=== PATIENT | female | born 1990 | race Caucasian/White ===

== ENCOUNTER → 2016-10-07 | Outpatient (CLI) | payer OTHER ==
[~2016-10-07] MED LIST: PANT40TA PO; PRENTAB26 PO; [UNRECOGNIZED DRUG - CODE] PO
[2016-10-07 18:05] LABS: URINE APPEARANCE CLEAR (CLEAR); URINE BILIRUBIN NEG (NEG); URINE COLOR YELLOW; URINE EPITHELIAL CELL AUTO >30 /lpf (0-5); URINE NITRITE NEG (NEG); URINE PH 6.5 (4.5-7.5); UROBILINOGEN NEG (NEG)
[2016-10-07 18:10] LABS: MANUAL MICROSCOPIC REQUIRED? NO; REVIEW REQ? YES
== END ==
LOC: C.LABSPEC 17:44
PROVIDERS: ATTEND Obstetrics & Gynecology
DX: O09.03 Supervision of pregnancy with history of infertility, third trimester (principal); Z3A.00 Weeks of gestation of pregnancy not specified

== ENCOUNTER → 2016-10-07 | Outpatient (CLI) | payer OTHER ==
[2016-10-07 16:44] LABS: HEMATOCRIT 32.5 % (37-47)
[2016-10-07 16:52] LABS: GTGD 50 Grams
== END | disposition home or self-care (01) ==
LOC: C.LAB1850 15:37
PROVIDERS: ATTEND Obstetrics & Gynecology
DX: O09.03 Supervision of pregnancy with history of infertility, third trimester (principal); Z3A.00 Weeks of gestation of pregnancy not specified

== ENCOUNTER → 2016-12-02 | Outpatient (CLI) | payer OTHER | END | disposition home or self-care (01) | LOC: C.LABSPEC 17:31 | PROVIDERS: ATTEND Obstetrics & Gynecology | DX: O09.03 Supervision of pregnancy with history of infertility, third trimester (principal) ==

== ENCOUNTER 2016-12-22 09:48 | Inpatient (IN) | payer OTHER ==
[~2016-12-22] VITALS: Ht 162.6 cm; Wt 73.2 kg
[~2016-12-22 09:48] MED LIST changes: -PRENTAB26 PO
[2016-12-22 11:02] VITALS: Ht 162.6 cm; Wt 73.2 kg
[2016-12-22] MEDS ORDERED: PRENTAB26 PO (11:08)
[2016-12-22 15:26] LABS: HEMATOCRIT 34.8 % (37-47); MEAN CELL VOLUME 90.9 fL (80-100); MEAN CORPUSCULAR HEMOGLOBIN 31.6 pg (25-34); MEAN CORPUSCULAR HGB CONC 34.8 g/dl (32-36); MEAN PLATELET VOLUME 11.5 fL (7.4-10.4); PLATELET COUNT 160 K/uL (130-400); RED BLOOD COUNT 3.83 M/uL (4.2-5.4); WHITE BLOOD COUNT 12.45 K/uL (4.8-10.8)
[2016-12-22] MEDS ORDERED: LACTATED RINGER'S 1000ML 1,000 ML IV PRN (15:26)
[2016-12-22] MEDS: LACTATED RINGER'S 1000ML 1,000 ML IV SCH ×2 (18:27→19:53)
[2016-12-22] MEDS ORDERED: BUTORPHANOL TARTRATE 1 MG/ML VIAL IV ONE (18:30)
[2016-12-22] MEDS ORDERED: BUTORPHANOL TARTRATE 1 MG/ML VIAL ONE (18:38)
[2016-12-22] MEDS ORDERED: BUPIVACAINE 0.25% 30 ML VIAL ONE (19:13)
[2016-12-22] MEDS ORDERED: EpHEDrine SULFATE INJ 50 MG/ML AMP ONE (19:14)
[2016-12-22] MEDS ORDERED: FENTANYL CITRATE INJ 50 MCG/1 ML 2 ML VIAL ONE (19:15)
[2016-12-22] MEDS ORDERED: FENTANYL 2MCG/ML ROPIV 1.25MG/ML 100ML BAG EPI ONE (19:16)
[2016-12-22] MEDS ORDERED: LACTATED RINGER'S 1000ML 500 ML IV PRN ×2 (21:01→23:02)
[2016-12-22] MEDS ORDERED: OXYTOCIN 30 UNITS/500ML NSS IV PRN (21:15)
[2016-12-22] MEDS ORDERED: FENTANYL 2MCG/ML ROPIV 1.25MG/ML 100ML BAG EPI PRN (23:15)
[2016-12-22] MEDS ORDERED: DiphenhydrAMINE HCL 50 MG/ML VIAL IV PRN (23:15)
[2016-12-22] MEDS ORDERED: NALOXONE HCL INJ 0.4 MG/1 ML VIAL/CARP IV PRN (23:15)
[2016-12-22] MEDS ORDERED: EpHEDrine SULFATE INJ 50 MG/ML AMP IV PRN (23:15)
[2016-12-23] VITALS (8 sets, daily range): BP systolic 111–129; BP diastolic 70–75; PULSE 69–86; TEMP 36.7–37.1; O2SAT 96–98
[2016-12-23] MEDS ORDERED: DIPHTHERIA/TETANUS/PERTUSSIS 0.5 ML SYR/VIAL IM. ONE
[2016-12-23] MEDS ORDERED: OXYCODONE/ACETAMINOPHEN 5-325 TAB PO PRN
[2016-12-23] MEDS ORDERED: OXYTOCIN 30 UNITS/500ML NSS IV PRN
[2016-12-23] MEDS ORDERED: ACETAMINOPHEN/CODEINE 300/30MG TAB PO PRN ×2
[2016-12-23] MEDS ORDERED: ACETAMINOPHEN 325 MG TAB PO PRN
[2016-12-23] MEDS ORDERED: SUPERCREAM 0.870 % 15GM JAR EXT PRN
[2016-12-23] MEDS ORDERED: LANOLIN OINT EXT PRN ×2
[2016-12-23] MEDS ORDERED: HYDROCORTISONE ACETATE 25 MG SUPP PR PRN
[2016-12-23] MEDS ORDERED: BENZOCAINE 20% AER SPR 82.5 GM CAN EXT PRN
--- NOTE | 2016-12-23 00:57 | DELIVERY SUMMARY ---
DATE OF OPERATION: 12/22/2016 PREOPERATIVE DIAGNOSES: 1. Intrauterine at 39 and 2/7th weeks. 2. Labor. POSTOPERATIVE DIAGNOSES: Same. PROCEDURES: 1. Amniotomy. 2. Epidural anesthesia. 3. Normal spontaneous vaginal delivery. 4. Second degree perineal laceration with repair. SURGEON: Dr. Juarez. ANESTHESIA: Epidural. ESTIMATED BLOOD LOSS: 350 mL. PROCEDURE IN DETAIL: The patient presented to labor and delivery in early active labor. She progressed and changed her cervix and was admitted. A 5 cm dilated, she underwent an amniotomy. She got one dose of Stadol and then an epidural anesthetic. She then progressed to complete, complete and +2 station with just a little bit of Pitocin augmentation and she pushed to deliver a viable female infant in [place] presentation. There was no nuchal cord. The nose and mouth were bulb suctioned. The rest of the was then delivered without difficulty. The was placed on the maternal abdomen where the nose and mouth were again bulb suctioned. The cord was clamped and cut. Cord blood and segment were obtained. The placenta was delivered spontaneously intact through a 3-vessel cord. The cervix, sulci and rectum were examined and found to be intact. The second degree peroneal laceration was repaired with 3-0 Vicryl in the normal standard fashion. Apgars were 8 and 9, weight pending. Mother and baby doing well at the end of the delivery. I attest to the content of the Intraoperative Record and any orders documented therein. Any exceptio ns are noted below.
[2016-12-23] MEDS: IBUPROFEN 600 MG TAB PO PRN ×5 (01:36→23:54)
[2016-12-23 07:01] LABS: HEMATOCRIT 32.7 % (37-47)
--- NOTE | 2016-12-23 08:11 | Progress Note ---
Subjective Dec 23, 2016. Subjective conversation w/ patient, conversation w/ family, physical exam, lab review Ambulation: ambulating normally Voiding: no voiding problems Passing Gas: Yes Diet Tolerance: Regular Diet Lochia: Moderate Feeding Type: Breast Feeding Pain: Complains of pain 2/10 controlled well with pain medication Review of Systems Constitutional: No chills, No fever Respiratory: No cough, No shortness of breath Cardiac: No chest pain, No palpitations Breast: No breast lump Abdomen: No diarrhea, No nausea, No pain, No vomiting Female : No dysuria Patient was seen at the bedside. No acute event overnight. Denies headache. Objective Vital Signs Date Time Temp Pulse Resp B/P Pulse Ox O2 Delivery O2 Flow Rate FiO2 12/23/16 07:57 37.0 69 16 120/74 12/23/16 03:35 Room Air 12/23/16 03:35 36.8 75 18 123/70 Room Air 12/23/16 02:10 36.8 82 16 129/70 Room Air Physical Exam General Appearance: WELL-APPEARING, WD/WN Respiratory/Chest: lungs clear, normal breath sounds Cardiovascular: regular rate, rhythm Abdomen: normal bowel sounds, non tender, soft Fundus: Firm, Tender (appropriate for ), Relation to Umbilicus (1cm below) Extremities: non-tender, no pedal edema, no calf tenderness Laboratory Results Last 24 Hours Test 12/22/16 15:19 12/23/16 06:19 White Blood Count 12.45 K/uL Red Blood Count 3.83 M/uL Hemoglobin 12.1 g/dL 11.2 g/dL Hematocrit 34.8 % 32.7 % Mean Corpuscular Volume 90.9 fL Mean Corpuscular Hemoglobin 31.6 pg Mean Corpuscular Hemoglobin Concent 34.8 g/dl RDW Standard Deviation 43.6 fL RDW Coefficient of Variation 13.1 % Platelet Count 160 K/uL Mean Platelet Volume 11.5 fL Assessment and Plan Post- Day#: 0 Continue Routine Care: A/P This is a 26 y/o female, , had normal vaginal delivery. She is ambulating and clinically stable. Plan: - Vitals sings are reviewed and WNL (Tmax 36.8) - Hgb is 12.1 --> 11.2 (today) - Blood type A+, GBS -, Rubella Immune - Routine care - Encourage ambulation, monitor and control pain with ibuprofen prn, continue with regular diet and monitor lochia - Encourage breast feeding and educate about breast feeding Resident Physician Supervision Note: I interviewed and examined the patient. Discussed with Dr. Barboza and agree with findings and plan as documented in the note. Any exceptions or clarifications are listed here: Doing well. Routine pp care. Documented By: Janneth Juarez
[2016-12-23] MEDS: DOCUSATE SODIUM 100 MG CAP PO SCH ×2 (08:16→20:44)
[2016-12-23] MEDS: PRENATAL VITAMIN TAB PO SCH (08:17)
--- NOTE | 2016-12-23 10:21 | Anesthesia Procedure Note ---
Anesthesia Epidural Removal Nt Date & Time Dec 23, 2016 at 10:20 Vital Signs Pain Intensity: 3.0 Vital Signs Past 12 Hours Date Time Temp Pulse Resp B/P Pulse Ox O2 Delivery O2 Flow Rate FiO2 12/23/16 07:57 37.0 69 16 120/74 12/23/16 07:50 Room Air 12/23/16 07:50 37.0 69 16 120/74 Room Air 12/23/16 03:35 Room Air 12/23/16 03:35 36.8 75 18 123/70 Room Air 12/23/16 02:10 36.8 82 16 129/70 Room Air Notes Mental Status: alert / awake / arousable, participated in evaluation Nausea / Vomiting: adequately controlled Pain: adequately controlled Airway Patency, RR, SpO2: stable & adequate BP & HR: stable & adequate Hydration State: stable & adequate Neuraxial Anesthesia: was administered Anesthetic Complications: no major complications apparent, pt satisfied with anesthetic care Epidural: removed without complications, with tip intact
--- NOTE | 2016-12-24 07:04 | Discharge Instructions ---
Discharge Instructions Date of Service Dec 23, 2016. Admission Reason for Admission: R/O Labor Discharge Discharge Diagnosis / Problem: s/p normal vaginal delivery Discharge Goals Goal(s): Routine recovery after delivery Medications Continue Dispensed Medications: supercream, dermaplast, tucks, lansinoh Activity Recommendations Activity Limitations: as noted below . Instructions / Follow-Up Instructions / Follow-Up ACTIVITY RECOMMENDATIONS: * Gradual return to full activity over the next 2-3 weeks. * No lifting - nothing heavier than baby over the next 2-3 weeks. * Do not engage in vigorous exercise, sexual activity or sports until cleared by your physician. * Do not drive or operate any motorized equipment until cleared by your physician. * You may shower/bathe daily. MEDICATIONS: For discomfort or pain, you may use Acetaminophen (Tylenol), Ibuprofen (Advil), or Naproxen (Aleve) following the package directions. For constipation you may use Colace following the package directions. BREAST CARE: If you are not breast feeding: * Wear a supportive bra 24 hours a day for one to two weeks. * Avoid stimulating your breasts and nipples as much as possible during the first few weeks after delivery. * When taking a shower, have the warm water hit your back, not breasts. * When your breasts feel full, apply ice packs. Usually three to four times a day helps ease the discomfort. * Take a mild pain medication (Tylenol / Motrin) when you are uncomfortable. If breast feeding: * Use breast milk to lubricate nipples. Lansinoh cream may be used for sore nipples. You do not need to remove cream prior to breast feeding. If using a different brand of cream, check the label for directions regarding removal of cream prior to nursing. * Wear a supportive bra. * If having problems with breasts or breast feeding, call a men's custom hair piece consultant or your health care provider. EPISIOTOMY CARE: After delivery, if you have an episiotomy (stitches), the following steps will ease discomfort and aid healing. * For the first 24 hours after delivery, place ice packs next to your episiotomy to help reduce swelling. * After the first 24 hour-period, sitz baths, either portable or in the tub, are suggested. A shower with a shower arm sprayed over the episiotomy may be comforting. * Sherri care should be done after each voiding and bowel movement. Squirt warm water from a plastic bottle over the perineum (region of the body between the anus and urinary opening) and pat dry. * Use Dermoplast to ease discomfort. Shake container. [place] directly over the episiotomy. Place a Tucks on a clean sanitary pad next to your episiotomy. SPECIAL CARE INSTRUCTIONS: When you are discharged from the hospital, it is important for you to follow the instructions listed below: * During the first week at home, you should be able to care for yourself and your baby. In addition, the usual light household activities are encouraged. * Limit your activities to the way you feel. Do not try to clean the house or move furniture. Be sensible. * If you actively engage in sports and have done so up until the time of your delivery, you may resume these activities as soon as you feel able. This may take up to one month or even longer. Use good judgment. * Continue to take your vitamins for at least six weeks after the of your baby. * Your diet need not be limited unless you were on a special diet before your delivery. Breast-feeding mothers need around 2500 calories per day and at least 64-80 ounces of fluid per day (8 to 10 glasses). * You should eat foods from the four major food groups. Crash diets or fad diets are to be avoided. Eating lean meats, fresh fruits and vegetables, low-fat dairy products, high fiber foods and a regular exercise program, will help you get back to your pre- weight without putting your health at risk. * Constipation is sometimes a problem after delivery. Take a mild laxative as needed. If breast feeding, Milk of Magnesia is acceptable to use. You may use a suppository or Fleets enema if no episiotomy. * A daily shower or tub bath is suggested. Be sure to thoroughly and gently dry the perineum. * A bloody vaginal discharge will usually continue until around four weeks post . A small amount of bleeding may continue for as long as six weeks. Vaginal discharge changes from the bright red bleeding after delivery to pink then brownish and finally yellowish-pink before becoming white and disappearing. * Bleeding may increase with activity. Your first period may come in 4-8 weeks. If you are breast feeding, your period may be delayed even longer. * [place] (sex) can begin whenever both you and your partner feel comfortable and do not have any form of genital infection. It is recommended that you wait at least six weeks for internal and external healing to occur. If you have questions, please talk to your health care practitioner. A condom should be used to prevent infection and . * Foreplay, gentle intercourse and lubrication is very important the first several times to prevent pain. A water-based lubricant such as K-Y jelly or Astroglide may be used. * If you have RH negative blood and your baby is RH positive, you will receive RHOGAM by injection prior to discharge. The nurse will give you a card to keep with you that has the date and place that you received RHOGAM after delivery. * During your care, you had a Rubella screen done to check for the presence of rubella antibodies in your blood. If your test was negative, you will receive a Rubella vaccine prior to discharge. This vaccine may cause a fever, soreness at the injection site and flu-like symptoms. If these symptoms persist, notify your health care practitioner. is not advised for one month after a Rubella vaccine. * Verbalizes understanding of car seat law as reviewed with patient nursing. * Car Seat hand-out given and reviewed with patient by nursing. * Shaken baby information reviewed with patient by nursing. Call you doctor if: * Heavy bleeding (saturating several pads an hour) or passing clots the size of your fist. * A fever >101 degrees F (38.3 degrees C) on two occasions four hours apart and /or chills. * Unusual pain in the pelvic or vaginal areas. * "Baby Blues" lasting longer than two weeks. If you have any questions or concerns, call your health care practitioner at . FOLLOW UP VISIT: * Please call the office at to schedule a 6 week examination. It is important you keep this appointment. It is important for you to make arrangements for either yearly or twice yearly check-ups thereafter. Current Hospital Diet Patient's current hospital diet: Regular OB Diet Discharge Diet Recommended Diet: Regular Diet Pending Studies Studies pending at discharge: no Medical Emergencies . Who to Call and When: Medical Emergencies: If at any time you feel your situation is an emergency, please call 911 immediately. . Non-Emergent Contact Non-Emergency issues call your: Form Block Maker Call Non-Emergent contact if: you have a fever, temperature is above 101 . . "Provider Documentation" section prepared by Deysi Barboza. VTE Core Measure Inpt VTE Proph given/why not?: Treatment not indicated
--- NOTE | 2016-12-24 07:16 | Progress Note ---
Subjective Dec 24, 2016. Subjective conversation w/ patient, physical exam, lab review, review of studies Ambulation: ambulating normally Voiding: no voiding problems Passing Gas: Yes Diet Tolerance: Regular Diet Lochia: Moderate Feeding Type: Breast Feeding Pain: Complains of pain, / Comment: Patient was seen at the bedside. No acute events overnight. Review of Systems Constitutional: No chills, No fever Respiratory: No cough, No shortness of breath Cardiac: No chest pain Breast: No breast lump Abdomen: No constipation, No diarrhea, No nausea, No pain, No vomiting Female : No dysuria Denies headache. Objective Vital Signs Date Time Temp Pulse Resp B/P Pulse Ox O2 Delivery O2 Flow Rate FiO2 12/23/16 23:30 36.7 86 18 111/70 98 Room Air 12/23/16 23:30 98 Room Air 12/23/16 21:00 36.7 79 16 120/73 Room Air 12/23/16 15:55 96 Room Air 12/23/16 15:55 36.9 85 18 114/75 97 Room Air 12/23/16 11:56 37.1 80 18 113/73 96 Room Air 12/23/16 07:57 37.0 69 16 120/74 12/23/16 07:50 Room Air 12/23/16 07:50 37.0 69 16 120/74 Room Air Physical Exam General Appearance: WELL-APPEARING, WD/WN Respiratory/Chest: chest non-tender, lungs clear, normal breath sounds Cardiovascular: regular rate, rhythm Abdomen: normal bowel sounds, non tender, soft Fundus: Firm, Relation to Umbilicus (1cm below) Extremities: non-tender, no pedal edema, no calf tenderness Medications Current Inpatient Medications Medications (Trade) Dose Ordered Sig/[place] Route Start Time Stop Time Status Last Admin Dose Admin Oxytocin (Pitocin IV) 30 units UD PRN IV 12/23/16 00:00 01/22/17 00:00 Benzocaine (Dermoplast Aero Spr) 1 appln PRN PRN EXT 12/23/16 00:00 01/22/17 00:00 Cocaine HCl (Supercream 0.870% Cr) BID PRN EXT 12/23/16 00:00 01/06/17 00:00 Hydrocortisone Acetate (Anusol Hc Supp) 25 mg BID PRN MA 12/23/16 00:00 01/22/17 00:00 Lanolin (Lanolin Oint) PRN PRN EXT 12/23/16 00:00 01/22/17 00:00 Prenat Multivit/ Sharp/Iron/Folic Ac ( Vitamin Tab) 1 tab DAILY PO 12/23/16 08:00 01/22/17 07:59 12/23/16 08:17 1 TAB Ibuprofen (Motrin Tab) 600 mg Q4H PRN PO 12/23/16 00:00 01/22/17 00:00 12/23/16 23:54 600 MG Acetaminophen (Tylenol Tab) 650 mg Q6H PRN PO 12/23/16 00:00 01/22/17 00:00 Acetaminophen/ Codeine Phosphate (Tylenol w/ Codeine #3 Tab) 1 tab Q4H PRN PO 12/23/16 00:00 01/22/17 00:00 Acetaminophen/ Codeine Phosphate (Tylenol w/ Codeine #3 Tab) 2 tab Q4H PRN PO 12/23/16 00:00 01/22/17 00:00 Docusate Sodium (coLACE CAP) 100 mg BID PO 12/23/16 08:00 01/22/17 07:59 12/23/16 20:44 100 MG Assessment and Plan Post- Day#: 2 Continue Routine Care: A/P This is a 26 y/o female, , s/p normal vaginal delivery. -Vitals signs are reviewed and WNL (Tmax 37.1) - Hgb was 11.2 (yesterday) - Blood type A+, antibody neg, Rubella immune, GBS neg - No signs of depression - Discussed resting, feeding, pain control, mastitis, control,, follow up in 6 weeks and reasons to call sooner if necessary. - Continue with pain mediation as needed and continue vitamins. - Encourage breast feeding and educate breast feeding - Patient understands and keen for home - Plan to discharge home Resident Physician Supervision Note: I was present with Dr. Barboza during the history and exam. I discussed the case with the resident and agree with the findings and plan as documented in the note. Any exceptions or clarifications are listed here: doing well. no complaints. ready for discharge home. instructions reviewed. f/u 6wks pp. Documented By: Tamiko De Jesus
[2016-12-24 07:30] VITALS: BP 117/75; PULSE 78; TEMP 36.6; O2SAT 97; O2SAT 98
[2016-12-24] MEDS: IBUPROFEN 600 MG TAB PO PRN ×2 (07:47→12:31)
[2016-12-24] MEDS: PRENATAL VITAMIN TAB PO SCH (07:47)
[2016-12-24] MEDS: DOCUSATE SODIUM 100 MG CAP PO SCH (07:47)
[2016-12-24 15:11] VITALS: BP_DIAS 75; PULSE 78; TEMP 36.6
== END 2016-12-24 15:20 | disposition home or self-care (01) | DRG 775 ==
LOC: C.LD 09:48 → C.OPB 09:48 → C.LD 15:30 → C.OPB 15:30 → C.OBG 12-23 02:15 → EDSTATUS 12-27 09:49
PROVIDERS: ADMIT Obstetrics & Gynecology; ATTEND Obstetrics & Gynecology
PROC: 10E0XZZ Delivery of Products of Conception, External Approach (ICD-10-PCS; principal; 2016-12-22)
PROC: 0KQM0ZZ Repair Perineum Muscle, Open Approach (ICD-10-PCS; principal; 2016-12-22)
DX: O99.62 Diseases of the digestive system complicating childbirth (principal); Z37.0 Single live birth; O70.1 Second degree perineal laceration during delivery; K21.9 Gastro-esophageal reflux disease without esophagitis; O26.893 Other specified pregnancy related conditions, third trimester; Z79.899 Other long term (current) drug therapy; Z3A.39 39 weeks gestation of pregnancy

== ENCOUNTER → 2017-02-05 | Outpatient (CLI) | payer OTHER ==
[~2017-02-05] MED LIST changes: +PRENTAB26 PO; -[UNRECOGNIZED DRUG - CODE] PO
== END | disposition home or self-care (01) ==
LOC: C.PAPS 13:44
PROVIDERS: ATTEND Obstetrics & Gynecology
DX: Z12.4 Encounter for screening for malignant neoplasm of cervix (principal)

== ENCOUNTER → 2018-05-06 | Outpatient (CLI) | payer OTHER | END | disposition home or self-care (01) | LOC: C.PAPS 18:21 | PROVIDERS: ATTEND Obstetrics & Gynecology | DX: Z12.4 Encounter for screening for malignant neoplasm of cervix (principal) ==

== ENCOUNTER 2019-12-19 14:01 | Inpatient (IN) ==
[2019-12-19] MEDS ORDERED: OXYTOCIN 30 UNITS/500 ML BAG IV PRN (14:47)
--- NOTE | 2019-12-19 14:50 | Labor Progress Brief Note ---
Date of Service December 19, 2019 Subjective Patient arrives from home with c/o contractions Q3min, no LOF or VB, good FM. Assessment & Plan (1) Normal labor and delivery: Admit, epidural on request, exp mgmt for now, AROM/Pit if needed at future assessments. Group B Strep neg. Physical Exam Physical Exam: /- FHT Cat 1 [place] Q3min No ROM evident Results & Data Vital Signs (Past 12 Hours) Vital Signs Pulse BP 12/19/19 14:12 99 H 127/80 Coding Level of Care Code None Diagnoses Normal labor and delivery O80
[2019-12-19 15:04] LABS: Hematocrit (blood only) 34.9 % (37-47); Hemoglobin 11.8 g/dL (12.0-16.0); Mean Corpuscular Hemoglobin 31.5 pg (25-34); Mean Corpuscular Volume 93.1 fL (80-100); Mean Platelet Volume 11.8 fL (7.4-10.4); Platelet Count 157 K/uL (130-400); RDW Coefficient of Variation 13.9 % (11.5-14.5); RDW Standard Deviation 47.5 fL (36.4-46.3); Red Blood Count 3.75 M/uL (4.2-5.4); White Blood Count 10.77 K/uL (4.8-10.8)
[2019-12-19 15:09] LABS: Mean Corpuscular Hgb Conc 33.8 g/dL (32-36)
--- NOTE | 2019-12-19 17:37 | Labor Progress Brief Note ---
Date of Service December 19, 2019 Subjective contractions more intense. Assessment & Plan (1) Normal labor and delivery: Continue current mgmt. Physical Exam Physical Exam: /0 AROM clear fluid FHT Cat 1 [place] Q2-3 Results & Data Vital Signs (Past 12 Hours) Vital Signs Temp Pulse Resp BP 12/19/19 14:27 98.6 F 20 12/19/19 14:12 99 H 127/80 Coding Level of Care Code None Diagnoses Normal labor and delivery O80
[2019-12-19] MEDS: LACTATED RINGER'S 1,000 ML IV PRN ×2 (19:38→20:45)
[2019-12-19] MEDS ORDERED: ePHEDrine sulfate 50 MG/ML AMP ONE (19:40)
[2019-12-19] MEDS ORDERED: BUPIVACAINE 0.25% 30 ML VIAL ONE (19:41)
[2019-12-19] MEDS ORDERED: fentaNYL citrate 100 MCG/2 ML VIAL ONE (19:41)
[2019-12-19] MEDS ORDERED: fentaNYL 2MCG/ML ROPIV 1.25MG/ML 100 ML BAG EPI ONE (19:41)
[2019-12-19] MEDS ORDERED: NALBUPHINE HCL INJ 10 MG/ML AMP IV PRN (20:13)
[2019-12-19] MEDS ORDERED: ONDANSETRON INJ 2 MG/ML 2 ML VIAL IV PRN (20:13)
[2019-12-19] MEDS ORDERED: DiphenhydrAMINE HCL 50 MG/ML VIAL IV PRN (20:13)
[2019-12-19] MEDS ORDERED: NALOXONE HCL 1 MG in SODIUM CHLORIDE 0.9% 1000ML 1,000 ML IV PRN (20:13)
[2019-12-19] MEDS ORDERED: fentaNYL 2MCG/ML ROPIV 1.25MG/ML 100 ML BAG EPI PRN (20:13)
[2019-12-19] MEDS ORDERED: ePHEDrine sulfate 50 MG/ML AMP IV PRN (20:13)
[2019-12-19] MEDS ORDERED: NALOXONE HCL 0.4 MG/1 ML VIAL/CARP IV PRN (20:13)
--- NOTE | 2019-12-19 20:16 | Anesthesiology Consultation ---
Date of Service December 19, 2019 Assessment & Plan Chart Review Chart Review: Patient NOT seen in Pre Admission Testing and Acceptable Risk for Labor Epidural Consults Requested none ASA ASA2 Proposed Anesthesia Anesthesia Type: Labor Epidural and CSE Risk / Benefits Reviewed With: PT / POA / Parent / Guardian, Accepts Plan and Informed Consent Obtained History Height/Weight Height: 5 ft 4 in Weight: 72.575 kg Allergies Allergy/AdvReac Type Severity Reaction Status Date / Time amoxicillin Allergy Intermediate HIVES Verified 12/19/19 15:02 cefaclor Allergy Intermediate HIVES Verified 12/19/19 15:02 walnut Allergy Intermediate mouth gets Verified 12/19/19 15:02 itchy latex Allergy Mild sensitivity Verified 12/19/19 15:02 Penicillins Allergy Rash Verified 12/19/19 15:02 Medications Home Medications Medication Instructions Recorded Confirmed Last Taken vit-iron fum-folic ac 1 tab PO DAILY 12/19/19 12/19/19 12/18/19 21:00 [ Vitamin] Active Medications Generic Name Dose Route Start Last Admin Trade Name Freq PRN Reason Stop Dose Admin Lactated Ringer's 1,000 mls @ 125 mls/hr 12/19/19 14:47 12/19/19 19:38 Lr IV 12/21/19 14:46 999 mls/hr .Q8H PRN Administration L&D Protocol Protocol NPO Date Last Intake of Fluids: 12/19/19 Time Last Intake of Fluids: 20:00 Date Last Intake of Solids: 12/19/19 Time Last Intake of Solids: 12:00 Past Medical History Medical History History of spontaneous Migraine Varicella Exercise / Class Metabolic Activity II 4-5 Yardwork/Stairs/Walk up hill Past Family History Family History Grandfather Colorectal cancer Father Hypertension Kidney stone Grandmother (Paternal) Diabetes Mother Fibroid Denies family history of Ovarian cancer Prostate cancer Breast cancer Past Surgical History Surgical History History of esophagogastroduodenoscopy (EGD) For GERD without esophagitis Past Anesthesia History No Hx of Anesthesia Complications and No Family Hx of Anesthesia Complications History of PONV No Hx of PONV and No Hx of Motion Sickness Social History Smoking Status: Never smoker Hx Alcohol Use: No Hx Substance Use: No substance use type: does not use Review of Systems no chest pain or sob Physical Exam Vital Signs Last Vital Signs Temp 37.1 C 12/19/19 19:12 Pulse 77 12/19/19 20:11 Resp 18 12/19/19 19:12 BP 127/76 12/19/19 19:12 Pulse Ox 99 12/19/19 20:11 ENMT Mouth: no TMJ abnormality Thyromental Distance: > or= 3.5 Finger Breadths Mallampati Class: II Neck normal visual inspection Respiratory normal respiratory effort Auscultation: lungs clear to auscultation bilaterally Cardiovascular Rate/Rhythm: regular rate and regular rhythm Musculoskeletal Spine: normal cervical ROM Neurologic moves all extremities Psychiatric Orientation: alert and oriented x 3 Testing Laboratory Results 12/19/19 14:54
--- NOTE | 2019-12-19 23:59 | Delivery Summary ---
Vaginal Delivery Summary Date of Service December 19, 2019 Vaginal Delivery Summary DIAGNOSES: 1. Lay intrauterine at 39w6d gestation. 2. Spontaneous onset of labor. 3. Group B Streptococcus Neg. PROCEDURE: Spontaneous vaginal delivery and repair of 1st degree laceration. SURGEON: Cece Arreaga MD. RABBLE FURNACE TENDER: None. ESTIMATED BLOOD LOSS: 250 mL. COMPLICATIONS: None. PLACENTA: Spontaneous and intact with a 3-vessel cord. DISPOSITION: Stable to labor and delivery. DESCRIPTION: The patient pushed well and brought the head to in OA position. The infant's head was allowed to deliver with contraction force and no further active pushing, with the perineum protected during this time. The shoulders delivered easily with a maternal pushing effort. There was no nuchal cord. The left shoulder was anterior. The shoulders and body delivered without any difficulty, and the was placed on the maternal abdomen. It was vigorous and moving all extremities, and making respiratory efforts. The cord was doubly clamped by the MD and then cut by the FOB. The placenta delivered spontaneously and was noted to be intact and with a 3VC and marginal insertion. The cervix, vagina and perineum were examined and were found to have only a small 1st degree laceration which was reapproximated using 3-0 vicryl in a running locked manner.. The fundus was firm and lochia minimal immediately after delivery.
[2019-12-20] MEDS ORDERED: BENZOCAINE 20% AER SPR 82.5 GM CAN EXT PRN (00:27)
[2019-12-20] MEDS ORDERED: ACETAMINOPHEN 325 MG TAB PO PRN (00:27)
[2019-12-20] MEDS ORDERED: DIPHTHERIA/TETANUS/PERTUSSIS 0.5 ML SYR/VIAL IM ONE (00:27)
[2019-12-20] MEDS ORDERED: OXYCODONE/ACETAMINOPHEN 5mg/325mg TAB PO PRN (00:27)
[2019-12-20] MEDS ORDERED: HYDROCORTISONE ACETATE 25 MG SUPP PR PRN (00:27)
[2019-12-20] MEDS ORDERED: SUPERCREAM 0.870% 15 GM JAR EXT PRN (00:27)
[2019-12-20] MEDS: IBUPROFEN 600 MG TAB PO PRN ×3 (05:52→20:08)
[2019-12-20 06:27] LABS: Hematocrit (blood only) 35.1 % (37-47); Hemoglobin 11.8 g/dL (12.0-16.0); Mean Corpuscular Hemoglobin 31.2 pg (25-34); Mean Corpuscular Hgb Conc 33.6 g/dL (32-36); Mean Corpuscular Volume 92.9 fL (80-100); Mean Platelet Volume 11.9 fL (7.4-10.4); Platelet Count 151 K/uL (130-400); RDW Standard Deviation 46.9 fL (36.4-46.3); Red Blood Count 3.78 M/uL (4.2-5.4); White Blood Count 15.23 K/uL (4.8-10.8)
--- NOTE | 2019-12-20 07:10 | Obstetrical Progress Note ---
Date of Service December 20, 2019 Assessment & Plan (1) Normal labor and delivery: PPD#1 doing well, vaginal delivery. ROutine care. Subjective Ambulation: ambulating normally Voiding: no voiding problems Passing Gas:: Yes Diet Tolerance:: regular diet Lochia:: Small Feeding Type:: breast feeding Physical Exam Constitutional WD/WN, vitals as above Eyes PERRL, conjunctivae normal, anicteric sclerae Neck normal visual inspection Respiratory normal respiratory effort and able to speak in complete sentences; no respiratory distress and no labored breathing Cardiovascular Rate/Rhythm: regular rate and regular rhythm Extremities: no edema Chest (Breasts) Chest: normal inspection of chest Gastrointestinal (Abdomen) Inspection/Auscultation: abdomen normal to inspection Soft, postgravid Psychiatric A+Ox3, euthymic affect Genitourinary OB Exam Abdomen: + fundal height Fundus: + firm and + relation to umbilicus (fundus just below umbilicus); not tender Results & Data Vital Signs (Past 12 Hours) Vital Signs Temp Pulse Pulse Resp BP BP Pulse Ox 12/20/19 03:45 98.2 F 89 18 97 12/20/19 02:00 98.4 F 16 125/75 96 12/20/19 01:54 85 99/54 L 12/20/19 01:45 85 20 99/54 L 12/20/19 01:40 77 101/56 L 12/20/19 01:25 80 105/58 L 12/20/19 01:10 88 118/58 L 12/20/19 00:55 86 126/60 12/20/19 00:40 86 145/67 H 12/20/19 00:25 77 129/59 L 12/20/19 00:10 97 H 137/62 12/19/19 23:55 88 156/64 H 12/19/19 23:42 100 H 124/69 12/19/19 23:40 101 H 129/63 12/19/19 23:36 109 H 97 12/19/19 23:31 115 H 98 12/19/19 23:27 127 H 132/63 12/19/19 23:26 127 H 99 12/19/19 23:21 97 H 93 12/19/19 23:20 18 12/19/19 23:16 130 H 97 12/19/19 23:11 117 H 128/60 99 12/19/19 23:06 87 97 12/19/19 23:01 114 H 98 12/19/19 23:00 18 12/19/19 22:57 102 H 94 12/19/19 22:56 90 138/82 95 12/19/19 22:51 117 H 96 12/19/19 22:46 87 96 12/19/19 22:42 100 H 133/87 93 12/19/19 22:41 107 H 97 12/19/19 22:37 110 H 94 12/19/19 22:36 102 H 97 12/19/19 22:31 103 H 99 12/19/19 22:30 18 12/19/19 22:26 100 H 96 12/19/19 22:25 107 H 129/93 12/19/19 22:21 91 H 97 12/19/19 22:16 116 H 99 12/19/19 22:11 108 H 127/75 99 12/19/19 22:06 93 H 97 12/19/19 22:01 103 H 99 12/19/19 22:00 18 12/19/19 21:56 114 H 100 12/19/19 21:51 104 H 98 12/19/19 21:46 101 H 100 12/19/19 21:41 97 H 98 12/19/19 21:40 86 92/51 L 12/19/19 21:36 102 H 98 12/19/19 21:31 83 96 12/19/19 21:30 18 12/19/19 21:26 82 97 12/19/19 21:25 102 H 109/55 L 12/19/19 21:21 88 98 12/19/19 21:16 83 97 12/19/19 21:15 97.9 F 12/19/19 21:11 82 108/59 L 97 12/19/19 21:06 82 98 12/19/19 21:01 82 98 12/19/19 21:00 18 12/19/19 20:56 89 98 12/19/19 20:54 85 103/55 L 12/19/19 20:52 88 104/56 L 12/19/19 20:51 91 H 98 12/19/19 20:50 83 101/59 L 12/19/19 20:49 94 H 102/57 L 12/19/19 20:47 92 H 101/57 L 12/19/19 20:46 91 H 18 97 12/19/19 20:45 87 101/52 L 12/19/19 20:42 90 100/56 L 12/19/19 20:41 95 H 97 12/19/19 20:40 93 H 105/55 L 12/19/19 20:39 90 107/55 L 12/19/19 20:36 80 131/71 100 12/19/19 20:34 88 134/75 12/19/19 20:31 90 97 12/19/19 20:26 100 H 99 12/19/19 20:21 92 H 96 12/19/19 20:16 88 93 12/19/19 20:11 77 99 12/19/19 20:06 86 99 12/19/19 20:01 89 100 12/19/19 19:56 83 98 12/19/19 19:51 82 99 12/19/19 19:46 78 98 12/19/19 19:12 98.8 F 83 18 127/76
[2019-12-20] MEDS: DOCUSATE SODIUM 100 MG CAP PO SCH ×2 (08:42→20:08)
[2019-12-20] MEDS: PRENATAL VITAMIN 1 TAB PO SCH (08:42)
[2019-12-21] MEDS: IBUPROFEN 600 MG TAB PO PRN (07:01)
[2019-12-21 07:14] LABS: Hematocrit (blood only) 35.1 % (37-47); Hemoglobin 11.5 g/dL (12.0-16.0)
--- NOTE | 2019-12-21 07:16 | Obstetrical Progress Note ---
Date of Service December 21, 2019 Assessment & Plan (1) Encounter for supervision of normal in multigravida: -doing well -desires d/c - instructions given - f/u in 6 weeks Subjective Ambulation: ambulating normally Voiding: no voiding problems Diet Tolerance:: regular diet Feeding Type:: breast feeding Physical Exam Constitutional WD/WN, vitals as above Gastrointestinal (Abdomen) Fundus firm below umbilicus Musculoskeletal No deep calf tenderness Results & Data Vital Signs (Past 12 Hours) Vital Signs Temp Pulse Resp BP Pulse Ox 12/20/19 23:15 98.2 F 82 20 101/67 97 12/20/19 20:30 98.8 F 93 H 20 107/69 96
[2019-12-21] MEDS: DOCUSATE SODIUM 100 MG CAP PO SCH (08:41)
[2019-12-21] MEDS: PRENATAL VITAMIN 1 TAB PO SCH (08:41)
== END 2019-12-21 13:10 | disposition home or self-care (01) | DRG 807 ==
LOC: OPB 14:01 → 4S1 14:04 → 4S2 12-20 02:05